=== PATIENT | female | born 1930 | race Caucasian/White ===

== ENCOUNTER → 2017-06-07 | Outpatient (CLI) | payer MEDICARE, OTHER | END | disposition home or self-care (01) | LOC: PCVCCLINIC 13:16 | PROVIDERS: ATTEND Internal Medicine Cardiovascular Disease | DX: I95.9 Hypotension, unspecified (principal); R94.31 Abnormal electrocardiogram [ECG] [EKG]; E78.5 Hyperlipidemia, unspecified; E11.9 Type 2 diabetes mellitus without complications; N39.0 Urinary tract infection, site not specified; Z79.84 Long term (current) use of oral hypoglycemic drugs; Z88.0 Allergy status to penicillin | CPT/HCPCS: 93005; G0463 ==

== ENCOUNTER → 2017-06-16 | Outpatient (CLI) | payer MEDICARE, OTHER ==
--- NOTE | 2017-06-16 16:24 | PCVCIMAG ---
APPROVED REPORT Exam: Stress Echocardiogram Indication: Dyspnea,Tachycardia Patient Location: Echo lab Stress Nurse: Felicia Ledbetter RN Status: routine HR: 94 bpm Rhythm: NSR Medical History Medical History: Diabetic Noninsulin, SOB,palpitations Cardiac Risk Factors: DM, tachycardia Previous Cardiac Procedures: none Pretest Chest Pain Characteristics: No chest pain Exercise History: Sedentary Procedure The patient underwent an Exercise Stress Test using the Luiz Protocol. Blood pressure, heart rate, and EKG were monitored. An Echocardiogram was performed by senior quality technician in four stages in quad fashion. At peak stress, four selected images were obtained and placed side by side with resting images for comparison. Stress Test Details Stress Test: Exercise stress testing was performed using a Luiz protocol. HR Resting HR: 94 bpmMax Heart Rate (APMHR): 135 bpm Max HR Achieved: 146 bpmTarget HR (85% APMHR): 114 bpm % of APMHR: 108 Recovery HR: 100 bpm HR response to stress: Accelerated HR response to stress BP Resting BP: 152/80 mmHg Max BP: 168/80 mmHg Recovery BP: 142/74 mmHg ECG Resting ECG: Sinus Rhythm, nonspecific ST-T abnormalities Stress ECG: Inferior TX pattern ST Change: Downsloping ST depression Maximum ST Deviation: 1.6 mm Arrhythmia: None Recovery ECG: Sinus Rhythm with downsloping ST changes Recovery ST Change: Ischemic Clinical Reason for Termination: Dyspnea,fatigue Stress Symptoms: profound fatigue,dyspnea,diaphoresis Exercise duration: 3 min 48 sec Highest Stage Achieved: Stage 1: 1.7 mph at 10% grade. Exercise capacity: 4.6 METs Overall Exercise Capacity for Age: Poor Angina Score: Non-Limiting Stress ECG Conclusion Cordero Treadmill Score is -9.0 which is Moderate risk. Pre-Stress Echo The resting Echocardiogram showed normal left ventricular contractility with an estimated Ejection Fraction of about 55-60%. Post-Stress Echo The stress Echocardiogram showed abnormal left ventricular contractility with an estimated Ejection Fraction of about 50-55%. Hypokinesis post exercise in the distal septum and distal anterior del rio, Frequent PVCs at peak exercise. ST depression worsened one minute into rest stage. Conclusion Clinical Response: Ischemic Exercise Capacity: Below Average Stress ECG Response: Ischemic Stress Echo Images: Ischemic Patient is refusing any further testing at this time. has agreed to nuc corellation <Conclusion> Patient is refusing any further testing at this time. has agreed to nuc corellation
== END | disposition home or self-care (01) ==
LOC: PCVCIMAG 13:55
PROVIDERS: ATTEND Internal Medicine Cardiovascular Disease
DX: I25.89 Other forms of chronic ischemic heart disease (principal); R94.31 Abnormal electrocardiogram [ECG] [EKG]; I49.3 Ventricular premature depolarization; E11.9 Type 2 diabetes mellitus without complications
CPT/HCPCS: 93325; 93351

== ENCOUNTER → 2017-07-07 | Outpatient (CLI) | payer MEDICARE, OTHER ==
--- NOTE | 2017-07-10 18:27 | PCVCIMAG ---
APPROVED REPORT Exam: Nuclear Stress Test Indication: Dyspnea, Abn EKG Patient Location: Out-Patient Stress Nurse: Madonna Goel RN, SANDRITA Burt Tech:Brandon Butler NMTCB Ht: 5 ft 5 in Wt: 130 lbs BSA: 1.65 m2 HR: 82 bpm BP: 178/84 mmHg BMI: 21.6 Rhythm: SR Medical History Medical History: Age, Hyperlipidemia, DM Allergies: PCN, Codeine NM EXAM: Myocardial Perfusion REST/STRESS Imaging Protocol: Rest Tc-99m/Stress Tc-99m 1 day Resting Data Rest SPECT myocardial perfusion imaging was performed in supine position 45 minutes following the intravenous injection of 11.2 mCi of Tc-99m Sestamibi. Time of rest injection: 1230 Date: 07/07/2017 Pharmacologic Stress Pharmacologic stress test was performed by injecting Regadenoson 0.4 mg IV push followed by the intravenous injection of 34.6 mCi of Tc-99m Sestamibi. Time of stress injection: 1345 Date: 07/07/2017 The images were gated to evaluate regional wall motion and calculate left ventricular ejection fraction. Study Quality Study: Good Study Data Post stress, the left ventricular ejection was 74%.. SSS: 14 SRS: 15 SDS: 1 TID = 1.04. Perfusion No evidence of stress induced ischemia or prior myocardial infarction. Wall Motion Normal left ventricular size and function with no regional wall motion abnormalities. Nuclear Conclusion No evidence of stress induced ischemia or prior myocardial infarction. Normal left ventricular size and function with no regional wall motion abnormalities. Post stress, the left ventricular ejection was 74%.. No prior study available for comparison. Interpreted by: Noah Armenta MD Electronically Approved: 07/07/2017 17:33:12 Stress Test Details Stress Test: Pharmacologic stress testing performed using 0.4 mg of regadenoson per 5 mL given IV over 10 seconds. HR Resting HR: 82 bpmMax Heart Rate (APMHR): 135 bpm Max HR Achieved: 109 bpmTarget HR (85% APMHR): 114 bpm % of APMHR: 80 Recovery HR: 101 bpm BP Resting BP: 178/84 mmHg Max BP: 170/83 mmHg ECG Resting ECG: Sinus Rhythm Stress ECG: Sinus Rhythm, Sinus Rhythm, NSSTT changes Clinical Reason for Termination: Completed protocol Stress Symptoms: Dyspnea, Leg Fatigue, Lightheaded, Abd Pain
== END | disposition home or self-care (01) ==
LOC: PCVCIMAG 14:32
PROVIDERS: ATTEND Internal Medicine Cardiovascular Disease
DX: R94.31 Abnormal electrocardiogram [ECG] [EKG] (principal); E11.9 Type 2 diabetes mellitus without complications; E78.5 Hyperlipidemia, unspecified; Z79.4 Long term (current) use of insulin
CPT/HCPCS: 78452; 93017; A9500